=== PATIENT | female | born 1975 | race Caucasian/White ===

== ENCOUNTER 2017-07-23 23:42 | Emergency (ER) | payer BC ==
[~2017-07-23] VITALS: Ht 154.9 cm; Wt 129.3 kg
[2017-07-24] MEDS ORDERED: BUPR100 PO (00:01)
[2017-07-24] MEDS ORDERED: PRESTIQ PO (00:01)
[2017-07-24] MEDS ORDERED: SUMA25 PO (00:02)
[2017-07-24] MEDS ORDERED: Guaifenesin-Co118 ML PO (00:47)
[2017-07-24] MEDS ORDERED: Zithromax250 MG PO (00:47)
== END 2017-07-24 01:01 | disposition home or self-care (01) ==
LOC: ER 23:42
DX: J18.9 Pneumonia, unspecified organism (principal); F32.9 Major depressive disorder, single episode, unspecified; Z88.5 Allergy status to narcotic agent; Z79.899 Other long term (current) drug therapy; Z98.890 Other specified postprocedural states
CPT/HCPCS: 71020; 99283